=== PATIENT | male | born 1985 | race Caucasian/White ===

== ENCOUNTER 2016-08-01 08:18 | Observation (INO) | payer BC ==
[~2016-08-01] VITALS: Ht 200.7 cm; Wt 142.7 kg
--- NOTE | 2016-08-01 13:03 | DIAGNOSTIC IMAGING REPORT ---
PROCEDURE: US ABDOMEN ULTRASOUND-LIMITED INDICATION: ABNORMAL LFT TECHNIQUE: Smith scale and color Doppler sonographic images were obtained of the right upper quadrant. COMPARISON: None. FINDINGS: The liver is mildly enlarged and slightly diffusely hyperechoic in echo texture. No mass or biliary dilatation. The gallbladder is partially decompressed and normal without stones or sludge. Normal wall thickness at 1.4 mm No pericholecystic fluid or Lord's sign. The pancreas was suboptimally visualized. The visible portion of the inferior vena cava, abdominal aorta, and portal vein appear normal with appropriate direction of flow in the portal vein. The right kidney is normal measuring 11.4 cm. No free fluid in the right upper quadrant. IMPRESSION: 1. Mild hepatomegaly and hepatic steatosis. 2. No cholelithiasis or evidence of cholecystitis. 3. Preliminary report given by the technologist to the emergency room provider.
--- NOTE | 2016-08-01 14:54 | ED NURSING NOTES ---
Clinical Report - Nurses [facility] [address] [place] [address] 08/01/2016 8:19 Patient: CARI CARY TRIAGE Triage time 08:29. Acuity: LEVEL 4. Chief Complaint: PAIN WITH URINATION and URINARY RETENTION. Alert. No acute distress. SEPSIS SCREEN: Sepsis Screen. Negative (no infection suspected/documented). SOUTH COMA SCORE: Webster Coma Scale: 15- eyes open spontaneously (4); best verbal response- oriented x 4 (5); best motor response- obeys commands (6). --08:31 Nenita Cooper R.N. 08:29 08/01/16. BP: 120/76. HR: 105. RR: 16. O2 saturation: 97%. Temp: 99 F. Pain level now 06/04. --08:31 Nenita Cooper R.N. Weight: 142.8 kg stated. Height/Length: 79 inches Per Patient. BMI: 35.5. --08:30 Nenita Cooper R.N. Medications Ibuprofen Oral, as needed. --08:31 Nenita Cooper R.N. Allergies Sulfa Antibiotics. --08:31 Nenita Cooper R.N. Suprax. --08:31 Nenita Cooper R.N. History Arrived by private vehicle. Historian: patient. Unaccompanied. Primary physician (none). Onset. (3 days ago continues to get worse). Treatment [employer] TIN CANS: Took ibuprofen. (0400). PAST MEDICAL HX: Immunizations: status is unknown. SOCIAL HX: Never smoker. Occasional alcohol use. No drug use. ABUSE ASSESSMENT: Abuse assessment: The patient was asked "Do you feel safe in your home?" and "Has anyone hurt you or threatened to hurt you?". No report of abuse. NUTRITIONAL RISK ASSESSMENT: The nutritional risk assessment revealed no deficiencies. FUNCTIONAL ASSESSMENT: Functional assessment: no impairments noted. LEARNING NEEDS ASSESSMENT: The learning needs assessment revealed no barriers. --08:31 Nenita Cooper R.N. PROBLEMS: Corneal Abrasion. Nasal Fracture. Abrasion(s). Contusion. Abnormal Liver Function Test. Chest Wall Pain. Sprain. --08: Nenita Cooper R.N. ADDITIONAL SURGERIES: Sinus Surgery. --08: Nenita Cooper R.N. Interventions ID band on patient. Ambulatory. --08:31 Nenita Cooper R.N. PHYSICAL ASSESSMENT Ambulatory to room. GENERAL / NEURO / PSYCH: Alert. Appears in no acute distress. HEENT: Mucous membranes are pink. RESPIRATORY: Respirations not labored. CVS: Capillary refill less than 2 seconds. GI / : Abdomen soft and nontender. SKIN: Skin is warm and dry. --08:31 Nenita Cooper R.N. SKIN: Skin appears jaundiced. --10:23 Nenita Cooper R.N. NURSING PROGRESS NOTES Patient gowned. Head of bed elevated. Two patient identifiers checked. Call light placed in reach. Side rails up x 2. Bed placed in lowest position. Brakes of bed on. Patient ready for evaluation- chart flagged. --08:31 Nenita Cooper R.N. 09:00 08/01/2016 Site #1 started via IV in the left antecubital space with an 20g angiocath, with aseptic technique and good blood return; one attempt. Blood drawn: rainbow set. Labeled in the presence of the patient and sent to the lab. Saline lock flushed with 10 mL saline (accessed by Armand Salomon RN). --09:23 Nenita Cooper R.N. 09:07 08/01/2016 Started bag #1 1000 mL IV Fluids IV NS (Saline); at 1000 mL/hr over 1 minute(s) via site #1 via IV pump. Allergies verified and confirmed 5 rights. IV patency established. IV site checked: no pain, redness, or swelling. IV flushed thoroughly pre- and post-medication administration. --09:24 Nenita Cooper R.N. 09:08 08/01/2016 Zofran (Ondansetron HCl) IVP 4 mg given over 1 minute(s) via site #1. Allergies verified and confirmed 5 rights. IV patency established. IV site checked: no pain, redness, or swelling. IV flushed thoroughly pre- and post-medication administration. --09:24 Nenita Cooper R.N. 09:15. Patient ID band checked for patient name, birthdate and medical record number: patient confirmed. Instructions provided to collect clean catch urine and patient verbalized understanding. Clean catch urine collected with return of yellow-colored clear urine; sample sent to lab for urinalysis. Specimen labeled in the presence of the patient. --09:29 Nenita Cooper R.N. 09:29 08/01/16. BP: 104/54. HR: 93. RR: 16. O2 saturation: 98%. --09:32 Nneita Cooper R.N. Patient informed about reason for wait and about plan of care. --09:32 Nenita Cooper R.N. 10:23 08/01/16. BP: 101/51. HR: 102. RR: 18. O2 saturation: 97%. --10:24 Nenita Cooper R.N. 10:08/01/16. Critical value relayed to ED by Turf And Grounds Supervisor. Critical value received by Harpreet Acuna RN. (+) [place] screen. ED physician notifed of critical value. --10:27 Armand Cline R.N. 12:24 08/01/2016 IV Fluids IV NS Discontinued: bag #1 infused. Total amount infused: 800 mL. IV patency established. IV site checked: no pain, redness, or swelling. IV flushed thoroughly. --12:24 Nenita Cooper R.N. 12:25 08/01/2016 Site #1 reassessed. (IV site infiltrated. Line removed applied manual pressure and bandaid.). --12:25 Nenita Cooper R.N. 13:12 08/01/16. BP: 128/75. HR: 100. RR: 15. O2 saturation: 97%. Pain level now 04/06. --13:13 Nenita Cooper R.N. 14:08/01/2016 Site #2 started via IV in the right antecubital space with an 20g angiocath, with aseptic technique and good blood return; one attempt. Blood drawn: rainbow set. Labeled in the presence of the patient and sent to the lab. Saline lock flushed with 10 mL saline. --14:05 Nenita Cooper R.N. 15:22 08/01/2016 Site #2 removed. Catheter intact. Manual pressure and bandage applied (site infiltrated in CT). --15:22 Jyotsna Vega R.N. 15:22 08/01/2016 Site #3 started via IV in the right antecubital space with an 20g angiocath, with aseptic technique and good blood return; one attempt. Saline lock flushed with 10 mL saline. --15:22 Jyotsna Vega R.N. 15:37 08/01/16. BP: 120/64. HR: 96. RR: 15. O2 saturation: 97%. --15:37 Nenita Cooper R.N. DISPOSITION / DISCHARGE Admitted to Acute Care. Report was given to a nurse via a phone call. Report included patient's care, treatment, medications, reviewed medication reconcilliation, and condition (including any recent changes or anticipated changes). All questions were answered. Patient's personal items; items were placed in belongings bag, given to the patient and transported with the patient. --16:32 Nenita Cooper R.N. 16:38 08/01/16. BP: 126/68. HR: 97. RR: 16. O2 saturation: 99%. Temp: 101.0 F. Pain level now 7/10. --16:39 Nenita Cooper R.N. Departure time: 16:39. --16:39 Nenita Cooper R.N. Locked/Released at 08/01/2016 16:41 by Nenita Cooper R.N.
--- NOTE | 2016-08-01 14:54 | ED ORDER SUMMARY ---
..... Patient: CARI CARY OrderSheet [facility] VisitID: [id number] [address] [place] [address] 31y, M Registration Date/Time: 08/01/2016 ORDER SHEET Weight: 142.8 kg (stated) Allergies: Sulfa Antibiotics, Suprax GENERAL ORDERS: UA-Culture if indicated Urgent (08:55 08/01/2016 PHutchinson DO) (Ack 8:56 TBergley) (9:28 SReitz R.N.) Cardiac Panel Stat (08:55 08/01/2016 PHutchinson DO) (Ack 8:56 TBergley) (9:24 SReitz R.N.) BNP Urgent (08:55 08/01/2016 PHutchinson DO) (Ack 8:56 TBergley) (9:24 SReitz R.N.) Amylase Urgent (08:55 08/01/2016 PHutchinson DO) (Ack 8:56 TBergley) (9:24 SReitz R.N.) PT with INR Urgent (08:55 08/01/2016 PHutchinson DO) (Ack 8:56 TBergley) (9:24 SReitz R.N.) Urine Drug Screen Urgent (08:55 08/01/2016 PHutchinson DO) (Ack 8:56 TBergley) (9:28 SReitz R.N.) Culture, Strep Screen Urgent (08:55 08/01/2016 PHutchinson DO) (Ack 8:56 TBergley) (9:28 SReitz R.N.) Pulse oximeter (08:55 08/01/2016 PHutchinson DO) (Ack 8:56 TBergley) (9:03 MWinterer R.N.) Vitals (08:55 08/01/2016 PHutchinson DO) (Ack 8:56 TBergley) (9:03 MWinterer R.N.) Lipase Urgent (08:58 08/01/2016 Xochilt Busby) (Ack 9:01 TBergley) (9:24 SReitz R.N.) Monoscreen Urgent (10:10 08/01/2016 MWinterer R.N. per protocol) (Ack 10:12 TBergley) (10:12 MWinterer R.N.) US Abdomen Limited (No) Urgent (11:00 08/01/2016 Xochilt Busby) (Ack 11:02 TBergley) (13:11 SRejennifer R.N.) Hepatitis Evaluation VII Urgent (11:01 08/01/2016 Xochilt Busby) (Ack 11:13 TBergley) (11:14 TBergley) - (bilirubin serum, direct and indirect) (13:32 08/01/2016 Xochilt Busby) (13:41 TBergley) CT Abd/Pel w Cont (No) (gfr > 60) Urgent (14:27 08/01/2016 Xochilt Busby) (Ack 14:33 TBergley) (15:29 TBergley) MEDICATION ORDERS: IV FLUIDS: IV NS : initial bolus 1000 mL (1000 mL/hr), then 1000 mL/hr for X1 (NOW) (08:54 08/01/2016 [facility]) (Ack 9:04 MWinterer R.N.) (9:24 SRejennifer R.N.) Zofran IV 4 mg (NOW) (08:55 08/01/2016 [facility]) (Ack 9:04 MWinterer R.N.) (9:24 SRejennifer R.N.) ORDER SHEET NOTES: [Electronically signed by Nenita Cooper R.N. (16:41 08/01/2016)] [Electronically signed by Diaz Nolan Dr. (17:18 08/02/2016)] [Electronically locked/signed by Nenita Cooper R.N. (16:41 08/01/2016)]
--- NOTE | 2016-08-01 14:54 | ED CLINICAL REPORT ---
Clinical Report - Physicians/Mid Levels [facility] [address] [place] [address] 08/01/2016 8:19 Patient: CARI CARY Time Seen: 08:44. Arrived- By private vehicle. Historian- patient. HISTORY OF PRESENT ILLNESS Chief Complaint: Pain with urination. At its maximum, severity described as mild. When seen in the E.D., severity described as mild. Modifying factors. Not worsened by anything. Not relieved by anything. This started about 3 days ago and is still present. It was gradual in onset and has been waxing/waning. It is described as "pain". No radiation. No nausea, loss of appetite or vomiting. No additional abdominal pain. (states he also has generalized fatigue). No recent travel. Similar symptoms previously: Recent medical care: Not recently seen/assessed. REVIEW OF SYSTEMS No constipation, fever, chest pain or difficulty breathing. All systems otherwise negative, except as recorded above. PAST HISTORY PROBLEMS: Corneal Abrasion. Nasal Fracture. Abrasion(s). Contusion. Abnormal Liver Function Test. Chest Wall Pain. Sprain. SURGERIES: Sinus Surgery. Medications: Ibuprofen Oral, as needed. Allergies: Sulfa Antibiotics. Suprax. SOCIAL HISTORY Never smoker. Occasional alcohol use. No drug use. 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 ADDITIONAL NOTES The nursing notes have been reviewed. PHYSICAL EXAM Vital Signs: 08/01/2016 08:29 BP: 120/76. HR: 105. RR: 16. O2 saturation: 97%. Temp: 99 F. Blood pressure normal. Oxygen saturation normal. Appearance: Alert. Oriented X3. No acute distress. Eyes: Pupils equal, round and reactive to light. Scleral icterus. Eyes normal inspection. ENT: Ears normal. Nose normal. Pharynx normal. Neck: Normal inspection. Neck supple. CVS: Normal heart rate and rhythm. Heart sounds normal. Pulses normal. Respiratory: No respiratory distress. Breath sounds normal. Chest nontender. No rales, rhonchi or wheezes. Abdomen: Soft and nontender. Bowel sounds normal. No organomegaly. No mass. Back: Normal inspection. Skin: Skin warm and dry. No rash. Normal skin turgor. (light jaundice). Extremities: Extremities exhibit normal ROM. Neuro: Oriented X 3. No motor deficit. No sensory deficit. LABS, X-RAYS, AND EKG Abdominal CT: PROCEDURE: ABDOMEN/PELVIS WITH CONTRAST CLINICAL INDICATION: JAUNDICE TECHNIQUE: 145 ml of Isovue 300 were injected intravenously and axial images were obtained of the abdomen and pelvis with sagittal and coronal reformations. During the contrast injection, there was IV failure and extravasation of the portion of contrast into the right antecubital fossa. The emergency room nurse was notified and the patient was treated. COMPARISON: None. Correlation made ultrasound performed the same day. FINDINGS: ABDOMEN: Bulky adenopathy is seen in the abelino hepatis and caval regions. Numerous nonenlarged lymph nodes are seen in the periaortic region. The spleen is diffusely enlarged measuring about 18.5 cm in length, 15 cm in AP diameter, and 8 cm transversely. The liver is mildly enlarged and demonstrates mild diffuse hypodensity. Clear lung bases. Normal sized heart. No hiatal hernia. The decompressed gallbladder, adrenal glands, kidneys, and pancreas are normal. The abdominal aorta is normal in its course and caliber. No atherosclerosis. There are no suspicious calcifications, or masses. The stomach, upper bowel loops, and mesentery are normal. Intact anterior abdominal wall. No free fluid or inflammation. PELVIS: Moderately bulky adenopathy in the external iliac chains bilaterally, left greater than right. The largest left external iliac lymph node measures 2.3 cm in short axis by 3.9 cm in length. The appendix was not convincingly identified. The pelvic small bowel loops are normal. Normal amount of stool in the colon and rectum. The uterus, ovaries, urinary bladder, and pelvic vessels are normal. No free fluid, or pelvic mass. Intact osseous structures. IMPRESSION: 1. Hepatosplenomegaly. 2. Bulky adenopathy in the abelino hepatis, portacaval, external iliac, and inguinal regions. 3. Mild hepatic hypodensity. 4. Constellation of findings consistent with infectious mononucleosis with EBV hepatitis. Differential diagnosis could also include lymphoma and leukemia. Clinical correlation recommended. Abdominal Sonogram: (PROCEDURE: US ABDOMEN ULTRASOUND-LIMITED INDICATION: ABNORMAL LFT TECHNIQUE: Smith scale and color Doppler sonographic images were obtained of the right upper quadrant. COMPARISON: None. FINDINGS: The liver is mildly enlarged and slightly diffusely hyperechoic in echo texture. No mass or biliary dilatation. The gallbladder is partially decompressed and normal without stones or sludge. Normal wall thickness at 1.4 mm No pericholecystic fluid or Lord's sign. The pancreas was suboptimally visualized. The visible portion of the inferior vena cava, abdominal aorta, and portal vein appear normal with appropriate direction of flow in the portal vein. The right kidney is normal measuring 11.4 cm. No free fluid in the right upper quadrant. IMPRESSION: 1. Mild hepatomegaly and hepatic steatosis. 2. No cholelithiasis or evidence of cholecystitis.). The study was independently viewed by me and interpreted by the radiologist. The study was discussed with the radiologist (via pacs). Laboratory Tests: UA-Culture if indicated: (RYLEE: 08/01/2016 09:00) ( [facility] [place] Final results Test Result Flag Units (Reference) URINE COLOR MELANIE URINE APPEARANCE CLEAR URINE GLUCOSE TRACE (NEGATIVE) URINE BILIRUBIN 3+ (NEGATIVE) URINE BILI CONFIRMATION= POSITIVE BY ICTOTEST URINE KETONE TRACE (NEGATIVE) URINE SPECIFIC GRAVITY 1.015 (1.010-1.030) URINE PH 8.0 (5.0-8.0) URINE PROTEIN 1+ (NEGATIVE) URINE UROBILINOGEN >=8.0 EU/dL (0.2-1.0) URINE NITRITE POSITIVE (NEGATIVE) URINE BLOOD NEGATIVE (NEGATIVE) URINE LEUK ESTERASE TRACE (NEGATIVE) URINE RBC NONE SEEN rbc/hpf (0-1) URINE WBC 1-3 wbc/hpf (0-1) URINE EPITHELIAL CELLS NONE SEEN EPI/hpf (0-5) URINE BACTERIA TRACE (<1+) (NONE SEEN) URINE COMMENT CULTURE INDICATED URINE CULTURES ARE SET-UP BASED ON THE FOLLOWING CRITERIA:POSITIVE NITRITEPOSITIVE LEUKOCYTE ESTERASEGREATER THAN 10 WHITE BLOOD CELLSMODERATE (2+) OR GREATER BACTERIA Monoscreen: (RYLEE: 08/01/2016 09:00) ( [facility] 08/01/2016 10:23) Final results Test Result Flag Units (Reference) MONOSCREEN POSITIVE (NEGATIVE) CBC w Diff: (RYLEE: 08/01/2016 09:00) ( [facility] 08/01/2016 10:19) Final results Test Result Flag Units (Reference) WHITE BLOOD COUNT 10.3 K/uL (4.5-11.5) RED BLOOD COUNT 4.61 M/uL (4.50-5.90) HEMOGLOBIN 15.3 gm/dL (13.5-17.5) HEMATOCRIT 43.4 % (41.0-53.0) MEAN CELL VOLUME 94 fL (80-100) MEAN CORPUSCULAR HGB 33 pg (26-34) MEAN CORPUSCULAR HGB CONC 35 g/dL (31-37) RED CELL DISTRIBUTION WIDTH 12.5 % (11.6-14.8) PLATELET COUNT 116 L K/uL (150-400) POLY % 25 L % (50-75) BAND % 15 H % (0-8) LYMPH 46 H % (25-40) MONO 12 % (3-14) EOSINOPHIL % 1 % (0-4) BASOPHIL % 1 % (0-2) METAMYELOCYTE % 0 % (0-1) MYELOCYTE 0 % (0-1) OTHER CELL TYPE 0 RBC MORPHOLOGY REACTIVE LYMPHS MANY~~NORMAL RBC POP PT with INR: (RYLEE: 08/01/2016 09:00) ( [facility] 08/01/2016 09:36) Final results Test Result Flag Units (Reference) INR 1.0 (0.8-1.2) Low Intensity Therapy: INR 1.5-2.0 PT range 18.5-23.1Mod.Intensity Therapy: INR 2.0-3.0 PT range 23.1-31.5High Intensity Therapy: INR 2.5-3.5 PT range 27.4-35.5High Intensity Therapy 2: INR 3.0-4.0 PT range 31.5-39.3 Urine Drug Screen: (RYLEE: 08/01/2016 09:00) ( [facility] 08/01/2016 09:58) Final results Test Result Flag Units (Reference) AMPHETAMINE/METHAMPHETAMINE NEGATIVE (NEGATIVE) BARBITURATE NEGATIVE (NEGATIVE) BENZODIAZEPINE NEGATIVE (NEGATIVE) CANNABINOID POSITIVE H (NEGATIVE) COCAINE NEGATIVE (NEGATIVE) ECSTASY NEGATIVE (NEGATIVE) METHADONE NEGATIVE (NEGATIVE) OPIATE NEGATIVE (NEGATIVE) The urine drug screen is a qualitative screening test fordrug overdose and abuse. All screen results should beconsidered as presumptive.Drugs screened for are as follows:BenzodiazepinesCocaineAmphetamines/MetamphetaminesTHC (Tetrahydrocannabinol)OpiatesBarbituratesEcstasyMethadonePositive results are unconfirmed. For confirmation, notifythe lab for the specimen to be sent to the reference lab.All confirmations must be performed by a differentmethodology.The ingestion of natural herbal and plant productscontaining Ephedra/Ephedra metabolites can produce in urineone or more substances capable of cross reacting withamphetamine/methamphetamine immunoassays. These testsprovide a preliminary result only. A more specificalternative chemical method must be used to obtain aconfirmed analytical result. BNP: (RYLEE: 08/01/2016 09:00) ( MsgRcvd 08/01/2016 10:05) Final results Test Result Flag Units (Reference) B-TYPE NATRIURETIC PEPTIDE < 5.0 L pg/ml (5-100) CHEM 13 PANEL: (RYLEE: 08/01/2016 09:00) ( MsgRcvd 08/01/2016 13:45) Final results Test Result Flag Units (Reference) GLUCOSE 100 mg/dL (70-110) BUN 12 mg/dL (7-18) CREATININE 1.0 mg/dL (0.6-1.3) Estimated GFR >60 mL/min Estimated GFR- >60 mL/min Note: Persistent reduction over 3 months in eGFR<60 mL/min/1.73 m2 defines CKD. Patients with eGFR values>=60 mL/min/1.73 m2 may also have CKD if evidence ofpersistent proteinuria. Additional information may be foundat www.kidney.org. SODIUM 138 mmol/L (136-145) POTASSIUM 4.4 mmol/L (3.5-5.1) CHLORIDE 100 mmol/L (98-107) CARBON DIOXIDE 27 mmol/L (21-32) CALCIUM 9.0 mg/dL (8.5-10.1) TOTAL PROTEIN 8.2 g/dL (6.4-8.2) ALBUMIN 3.7 g/dL (3.3-5.0) BILIRUBIN, TOTAL 10.4 H mg/dL (0.0-1.0) ALKALINE PHOSPHATASE 151 H U/L (46-116) AST (SGOT) 124 H U/L (15-37) ALT (SGPT) 174 H U/L (12-78) MAGNESIUM 2.3 mg/dL (1.8-2.4) LIPASE 178 U/L (73-393) AMYLASE 30 U/L (25-115) CPK 130 U/L (24-260) TROPONIN I <0.05 L ng/mL (0.00-1.5) TROPONIN REFERENCE RANGE:<0.1 NEGATIVE0.1-1.5 INDETERMINANT>1.5 POSITIVE BILIRUBIN, DIRECT 7.5 H mg/dL (0-0.3) BILIRUBIN, INDIRECT 2.9 H mg/dL (0.1-1.0) . PROGRESS AND PROCEDURES Course of Care: thhe patient is a pleasant 31-year-old male. Past medical history presenting for reevaluation of generalized malaise and fatigue. Patient has been evaluated by the prior physician and I have taking over care at the change of shift. Positive bowel upon the patient's laboratory studies and reevaluate the patient. I have introduced myself to the patient and performed my own independent examination. Agree with the assessment and plan. Patient's laboratory studies are notable for the findings above. Because of the abnormal liver function tests, will evaluate the patient for possible hepatobiliary obstruction with ultrasound. Patient is agreeable to the treatment and plan. Patient offered pain medication. Patient's ultrasound does not show any acute findings. Because of the patient's continued abnormal laboratory studies, would be concern for other alternative causes for the patient's increase in bilirubin. Was able to contact laboratory studies to have the bilirubin fractionated. Patient otherwise reports no recent Tylenol, alcohol, or other toxic ingestion. Patient reports no eating of raw or unprocessed seafood recently. Patient was no sick contacts. 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 was able to contact gastroenterology. No further recommendations made. Patient will be monitored for liver function evaluation. Had spoken to the hospitalist who is agreeable to the treatment plan. Would like to order patient a CT scan at this time for evaluation of potential pancreatic mass or abnormal intra-abdominal mass causing the patient's symptoms. Patient's CT scan does not show any significant abnormalities. Because of the patient's negative imaging here in the emergency department, feel the symptoms at this time are most likely because of viral hepatitis. Patient will be admitted for further monitoring because of the abnormal laboratory studies however and monitoring of his liver function. Discussed with the patient and mother that work appearing emergency department including diagnosis, and plan of care. All questions have been answered. The patient expressed understanding of these instructions and was agreeable to them. Consult obtained from gastroenterology. Disposition: Observation. (Electronically signed by Diaz Nolan Dr. 08/02/2016 17:18)
--- NOTE | 2016-08-01 14:54 | ED ORDER SUMMARY ---
..... Patient: CARI CARY OrderSheet [facility] VisitID: [id number] [address] [place] [address] 31y, M Registration Date/Time: 08/01/2016 ORDER SHEET Weight: 142.8 kg (stated) Allergies: Sulfa Antibiotics, Suprax GENERAL ORDERS: UA-Culture if indicated Urgent (08:55 08/01/2016 PHutchinson DO) (Ack 8:56 TBergley) (9:28 SReitz R.N.) Cardiac Panel Stat (08:55 08/01/2016 PHutchinson DO) (Ack 8:56 TBergley) (9:24 SReitz R.N.) BNP Urgent (08:55 08/01/2016 PHutchinson DO) (Ack 8:56 TBergley) (9:24 SReitz R.N.) Amylase Urgent (08:55 08/01/2016 PHutchinson DO) (Ack 8:56 TBergley) (9:24 SReitz R.N.) PT with INR Urgent (08:55 08/01/2016 PHutchinson DO) (Ack 8:56 TBergley) (9:24 SReitz R.N.) Urine Drug Screen Urgent (08:55 08/01/2016 PHutchinson DO) (Ack 8:56 TBergley) (9:28 SReitz R.N.) Culture, Strep Screen Urgent (08:55 08/01/2016 PHutchinson DO) (Ack 8:56 TBergley) (9:28 SReitz R.N.) Pulse oximeter (08:55 08/01/2016 PHutchinson DO) (Ack 8:56 TBergley) (9:03 MWinterer R.N.) Vitals (08:55 08/01/2016 PHutchinson DO) (Ack 8:56 TBergley) (9:03 MWinterer R.N.) Lipase Urgent (08:58 08/01/2016 Xochilt Busby) (Ack 9:01 TBergley) (9:24 SReitz R.N.) Monoscreen Urgent (10:10 08/01/2016 MWinterer R.N. per protocol) (Ack 10:12 TBergley) (10:12 MWinterer R.N.) US Abdomen Limited (No) Urgent (11:00 08/01/2016 Xochilt Busby) (Ack 11:02 TBergley) (13:11 SRejennifer R.N.) Hepatitis Evaluation VII Urgent (11:01 08/01/2016 Xochilt Busby) (Ack 11:13 TBergley) (11:14 TBergley) - (bilirubin serum, direct and indirect) (13:32 08/01/2016 Xochilt Busby) (13:41 TBergley) CT Abd/Pel w Cont (No) (gfr > 60) Urgent (14:27 08/01/2016 Xochilt Busby) (Ack 14:33 TBergley) (15:29 TBergley) MEDICATION ORDERS: IV FLUIDS: IV NS : initial bolus 1000 mL (1000 mL/hr), then 1000 mL/hr for X1 (NOW) (08:54 08/01/2016 [facility]) (Ack 9:04 MWinterer R.N.) (9:24 SRejennifer R.N.) Zofran IV 4 mg (NOW) (08:55 08/01/2016 [facility]) (Ack 9:04 MWinterer R.N.) (9:24 SRejennifer R.N.) ORDER SHEET NOTES: [Electronically signed by Nenita Cooper R.N. (16:41 08/01/2016)] [Electronically signed by Diaz Nolan Dr. (17:18 08/02/2016)] [Electronically locked/signed by Nenita Cooper R.N. (16:41 08/01/2016)]
--- NOTE | 2016-08-01 15:42 | Progress Note ---
Subjective General dmission History and Physical Examination Patient Name: Bora Enriquez Admission Date: August 01, 2016 Primary Care Provider: Winsome Attending Physician: Golden Cameron M.D. Admitting Physician: Golden Cameron M.D. Code Status: FULL CODE Room: Status: Obs. SUBJECTIVE Historian: Patient Reliability: good Chief Complaint: abdominal pain jaundice History of Present Illness: The patient is a 31-year-old, otherwise healthy white male with an insignificant past medical who presented to [facility] emergency room on the day of admission secondary to complaints of mid abdominal pain and perceived yellowing of his skin. Patient generally has felt malaise and fatigue tiredness over the past 3 or 4 days. Patient first started noticing this 4 days ago. Patient attributed the throat fatigue and illness being out in the sund and possible dehydration. Patient also reported that he has had dark urine and has had difficult time with adequate urination. Patient states that he has not had pain with urination but had not urinated as frequently as in the past. Patient is attempting to improve on hydration. Patient was worked up in the emergency department. There was noted that he had labs consistent with hepatitis. Liver enzymes, elevated T bili, ultrasound of the abdomen was done and revealed fatty infiltrate into the liver. Also CT scan was done which showed showed intra-abdominal lymphadenopathy along with changes in the contour of the liver. Monistat was positive. Secondary to the above, the patient was admitted by Golden Cameron M.D. for further evaluation and treatment. Patient denies sexual activity in the past year. No high risk exposure. Patient has not been exposed to anyone that he knows with mononucleosis. Patient has not traveled. Patient has been in close contact with dosage of traveled from a foreign country. Patient reports of no nausea vomiting diarrhea. Patient has not had fever. Patient does feel clammy at times sweaty. 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 He is not sure if he's been exposed from that standpoint. PAST MEDICAL HISTORY Illnesses: No significant medical history Allergies: None Medications: None Surgery: Nasal sinus surgery Injuries: 1. Injury to the knee Hospitalizations: 1. None FAMILY HISTORY Parents: 1. Father, good health 2. Mother, good health Siblings: 1. The patient has an older sister Children: 1. None Other significant family history: None none SOCIAL HISTORY 1. Marital Status: Single 2. Uatsdin: Unknown 3. Education: High school; several years of years of college 4. Employment History: Construction work, 19pay 5. Occupational health exposures: Patient denies any significant occupational exposures HABITS 1. Tobacco: Weekly tobacco use 2. Drugs: None 3. Alcohol: 3-4 beers per week 4. Caffeine: None HEALTH SUPERVISION Item/Test: unknown Unknown IMMUNIZATIONS: Unknown ADVANCED DIRECTIVES: 1. Living well: No 2. POLST: No 3. Code Status: Full code 4. Durable Power Collections [employer] Director Health care: No 5. Donor card: No REVIEW OF SYSTEMS Remarkable for those things stated in the history of present illness and past medical history. Seventeen point review of system completed with the following notable findings: Constitutional Malaise. Denies: Chills, Sweats, Weakness. Eyes Other (yellowing of the eyes and skin). Denies: Vision Change. ENT Denies: Nasal Discharge, Nasal Congestion. Respiratory Denies: SOB w/exertion. Cardiovascular Denies: Palpitations. Gastrointestinal Denies: Abdominal Pain. Skin Other (yellowing of the skin). Physical Exam Vital Signs / I&Os Vital Signs Date Time Temp Pulse Resp B/P Pulse O2 O2 Flow FiO2 Ox Delivery Rate 08/01 1704 101.5 63 18 130/61 100 Room Air General Appearance Oriented X3, Cooperative, No acute distress HEENT EOMI, erythematous changes posterior pharynx, icteric sclera Lungs Clear to auscultation Neck Supple Cardiovascular Regular rate and rhythm, Normal S1 and S2 Abdomen Soft, No tenderness, No guarding, No rebound, No hepatosplenomegaly (no tenderness to palpation) Extremities No edema, Normal pulses Skin jaundice Psych/Mental Status Mood normal LAB Results Laboratory Tests 08/01 08/01 0855 0858 Chemistry Amylase Cancelled Lipase Cancelled 08/01 08/01 08/01 0900 0900 1109 Chemistry Plasma Sodium (136 - 145 mmol/L) 138 Plasma Potassium (3.5 - 5.1 mmol/L) 4.4 Plasma Chloride (98 - 107 mmol/L) 100 CO2 (Enzymatic) (21 - 32 mmol/L) 27 BUN (7 - 18 mg/dL) 12 Creatinine (0.6 - 1.3 mg/dL) 1.0 Est GFR ( Amer) (mL/min) >60 Est GFR (Non-Af Amer) (mL/min) >60 Glucose (70 - 110 mg/dL) 100 Plasma Calcium (8.5 - 10.1 mg/dL) 9.0 Plasma Magnesium (1.8 - 2.4 mg/dL) 2.3 Total Bilirubin (0.0 - 1.0 mg/dL) 10.4 Direct Bilirubin (0 - 0.3 mg/dL) 7.5 Indirect Bilirubin (0.1 - 1.0 mg/dL) 2.9 AST (15 - 37 U/L) 124 ALT (12 - 78 U/L) 174 Alkaline Phosphatase (46 - 116 U/L) 151 Creatine Kinase (24 - 260 U/L) 130 Troponin (0.00 - 1.5 ng/mL) <0.05 B-Natriuretic Peptide (5 - 100 pg/ml) < 5.0 Total Protein (6.4 - 8.2 g/dL) 8.2 Albumin (3.3 - 5.0 g/dL) 3.7 Amylase (25 - 115 U/L) 30 Lipase (73 - 393 U/L) 178 Coagulation INR (0.8 - 1.2) 1.0 Hematology WBC (4.5 - 11.5 K/uL) 10.3 RBC (4.50 - 5.90 M/uL) 4.61 Hgb (13.5 - 17.5 gm/dL) 15.3 Hct (41.0 - 53.0 %) 43.4 MCV (80 - 100 fL) 94 MCH (26 - 34 pg) 33 RDW (11.6 - 14.8 %) 12.5 Neut % (Auto) (50 - 75 %) 25 Lymph % (Auto) (25 - 40 %) 46 Dukes % (Auto) (3 - 14 %) 12 Eos % (Auto) (0 - 4 %) 1 Baso % (Auto) (0 - 2 %) 1 Band Neutrophils % (0 - 8 %) 15 Metamyelocytes % (0 - 1 %) 0 Myelocytes (0 - 1 %) 0 Other Cell Type 0 Plt Count, EDTA (150 - 400 K/uL) 116 RBC Morphology (4931 A) NORMAL RBC POP PUBS MCHC (31 - 37 g/dL) 35 Serology Hepatitis A Ab Total Pending Hep Bs Antigen Pending Hep Bs Antibody Pending Hep B Core Total Ab Pending Hepatitis C Antibody Pending Monoscreen (NEGATIVE) POSITIVE Toxicology Urine Opiates Screen (NEGATIVE) NEGATIVE Urine Methadone Screen (NEGATIVE) NEGATIVE Ur Barbiturates Screen (NEGATIVE) NEGATIVE U Amphetamin/Meth Scrn (NEGATIVE) NEGATIVE MDMA (Ecstasy) Screen (NEGATIVE) NEGATIVE U Benzodiazepines Scrn (NEGATIVE) NEGATIVE Urine Cocaine Screen (NEGATIVE) NEGATIVE U Cannabinoids Screen (NEGATIVE) POSITIVE Urines Urine Color MELANIE Urine Appearance CLEAR Urine pH (5.0 - 8.0) 8.0 Ur Specific [place] (1.010 - 1.030) 1.015 Urine Protein (NEGATIVE) 1+ Urine Ketones (NEGATIVE) TRACE Urine Blood (NEGATIVE) NEGATIVE Urine Nitrite (NEGATIVE) POSITIVE Urine Bilirubin (NEGATIVE) 3+ Urine Urobilinogen (0.2 - 1.0 EU/dL) >=8.0 Ur Leukocyte Esterase (NEGATIVE) TRACE Urine RBC (0 - 1 rbc/hpf) NONE SEEN Urine WBC (0 - 1 wbc/hpf) 1-3 Ur Epithelial Cells (0 - 5 EPI/hpf) NONE SEEN Urine Bacteria (NONE SEEN) TRACE (<1+) Urine Glucose (NEGATIVE) TRACE Urine Comment CULTURE INDICATED Microbiology Date/Time Procedure - Status Source Growth 08/01 0900 Urine Culture - RECD URINE CC 08/01 0850 Group A Streptococcus Rapid Screen - RECD THROAT Imaging CT of the abdomen 1. Hepatosplenomegaly. 2. Bulky adenopathy in the abelino hepatis, portacaval, external iliac, and inguinal regions. 3. Mild hepatic hypodensity. 4. Constellation of findings consistent with infectious mononucleosis with EBV hepatitis. Differential diagnosis could also include lymphoma and leukemia. Clinical correlation recommended. Assessment and Plan Problem List 1. Transaminitis Plan Patient is admitted for observation. Hepatitis panel is pending. GI has been called and reviewed the findings. They asked the patient be admitted overnight for observation. Follow enzymes in the a.m. Follow-up with GI to review. Monitor hydration. 2. Hyperbilirubinemia Plan Hyperbilirubinemia secondary to potential's obstructive changes in the liver. Seen with a positive Monospot. Lymphadenopathy seen adjacent to the liver. This may be consistent with mono. There have really may be a differential for lymphoma leukemia. May need to follow up as an outpatient to sort out the adenopathy 3. Bandemia Plan Repeat labs in the morning 4. Abdominal pain Plan Diffuse abdominal pain on and off. Monitor. 5. UTI (urinary tract infection) Plan Starting Levaquin 500 mg daily. Current status: Moderately stable Anticipated discharge date: Anticipated discharge in 1 days Anticipated discharge placement: Home Patient care time: Time spent in chart review, patient interview, physical exam, CPOE, and care documentation: 70 minutes Visit to patient today: 1 Complexity of care: Mild/moderate DVT prophylaxis: SCDs GI prophylaxis: Pepcid 2020 mg IV Initial patient evaluation: Emergency department Advance care plan: Full code
--- NOTE | 2016-08-01 16:21 | DIAGNOSTIC IMAGING REPORT ---
PROCEDURE: ABDOMEN/PELVIS WITH CONTRAST CLINICAL INDICATION: JAUNDICE TECHNIQUE: 145 ml of Isovue 300 were injected intravenously and axial images were obtained of the abdomen and pelvis with sagittal and coronal reformations. During the contrast injection, there was IV failure and extravasation of the portion of contrast into the right antecubital fossa. The emergency room nurse was notified and the patient was treated. COMPARISON: None. Correlation made ultrasound performed the same day. FINDINGS: ABDOMEN: Bulky adenopathy is seen in the abelino hepatis and caval regions. Numerous nonenlarged lymph nodes are seen in the periaortic region. The spleen is diffusely enlarged measuring about 18.5 cm in length, 15 cm in AP diameter, and 8 cm transversely. The liver is mildly enlarged and demonstrates mild diffuse hypodensity. Clear lung bases. Normal sized heart. No hiatal hernia. The decompressed gallbladder, adrenal glands, kidneys, and pancreas are normal. The abdominal aorta is normal in its course and caliber. No atherosclerosis. There are no suspicious calcifications, or masses. The stomach, upper bowel loops, and mesentery are normal. Intact anterior abdominal wall. No free fluid or inflammation. PELVIS: Moderately bulky adenopathy in the external iliac chains bilaterally, left greater than right. The largest left external iliac lymph node measures 2.3 cm in short axis by 3.9 cm in length. The appendix was not convincingly identified. The pelvic small bowel loops are normal. Normal amount of stool in the colon and rectum. The uterus, ovaries, urinary bladder, and pelvic vessels are normal. No free fluid, or pelvic mass. Intact osseous structures. IMPRESSION: 1. Hepatosplenomegaly. 2. Bulky adenopathy in the abelino hepatis, portacaval, external iliac, and inguinal regions. 3. Mild hepatic hypodensity. 4. Constellation of findings consistent with infectious mononucleosis with EBV hepatitis. Differential diagnosis could also include lymphoma and leukemia. Clinical correlation recommended. 5. Discussed with Dr. Nolan in the emergency room. All CT scans at this facility use dose modulation, iterative reconstruction, and/or weight-based dosing when appropriate to reduce radiation dose to as low as reasonably achievable.
[2016-08-01 17:04] VITALS: BP 130/61
[2016-08-01] MEDS ORDERED: IBUPROFEN200 M1 PO (17:39)
[2016-08-01 18:01] VITALS: BP 127/67
[2016-08-01 22:25] VITALS: BP 105/53
[2016-08-02 02:47] VITALS: BP 119/59
[2016-08-02 07:14] VITALS: BP 116/50
--- NOTE | 2016-08-02 07:21 | Progress Note ---
Subjective General Note Date: Admission Date: 11/01/2016 Hospital Day: 2 PCP: none Status: Observation AC Advanced Directive: Full code Room: 302 Brief history The patient is a 31-year-old, otherwise healthy white male with an insignificant past medical who presented to [facility] emergency room on the day of admission secondary to complaints of mid abdominal pain and perceived yellowing of his skin. Patient generally has felt malaise and fatigue tiredness over the past 3 or 4 days. Patient was worked up in the emergency department. There was noted that he had labs consistent with hepatitis. Liver enzymes, elevated T bili, ultrasound of the abdomen was done and revealed fatty infiltrate into the liver. Also CT scan was done which showed showed intra-abdominal lymphadenopathy along with changes in the contour of the liver. Monistat was positive. Secondary to the above, the patient was admitted by Golden Cameron M.D. for further evaluation and treatment. Subjective Patient reports that he is generally feeling better. Patient reports of the patient has improved. Patient is feels like he is getting back to normal. Patient still complains of the dark urine. She slept fairly well overnight. Patient having good appetite. Discussed the adenopathy in the abdominal region around the liver. With Dr. Posey oncology with [facility]. Recommendation was that further imaging should return in the next 6 weeks. Nothing to do at this point time but if there is progression then this should be further reviewed and evaluated. This was discussed with patient and he agrees with the plan. Other than that the patient's labs have been about the same as they were yesterday. Patient having general weakness general illness. This is consistent with mononucleosis. Patient requests Stay additional night for follow-up Constitutional Denies: Fever. Eyes Denies: Vision Change. Physical Exam Vital Signs / I&Os Vital Signs Date Time Temp Pulse Resp B/P Pulse O2 O2 Flow FiO2 Ox Delivery Rate 08/02 713 98.2 72 18 116/50 98 Room Air 0.0 08/02 0247 99.0 79 19 119/59 98 Room Air 0.0 08/01 2225 98.4 69 16 105/53 97 Room Air 0.0 08/01 2100 Room Air 08/01 1801 100.2 95 18 127/67 98 Room Air 08/01 1704 101.5 63 18 130/61 100 Room Air I&O 08/01 0800 08/01 1600 08/02 0000 Intake Total 1140 Output Total 1250 Balance -110 General Appearance Oriented X3, Cooperative HEENT PERRLA, icteric sclera Lungs Clear to auscultation Cardiovascular Regular rate and rhythm, Normal S1 and S2 Skin yellowing tint jaundice Neurological Normal speech, Normal tone Psych/Mental Status Mood normal LAB Results Laboratory Tests 08/01 08/01 0855 0858 Chemistry Amylase Cancelled Lipase Cancelled 08/01 08/01 08/01 0900 0900 1109 Chemistry Plasma Sodium (136 - 145 mmol/L) 138 Plasma Potassium (3.5 - 5.1 mmol/L) 4.4 Plasma Chloride (98 - 107 mmol/L) 100 CO2 (Enzymatic) (21 - 32 mmol/L) 27 BUN (7 - 18 mg/dL) 12 Creatinine (0.6 - 1.3 mg/dL) 1.0 Est GFR ( Amer) (mL/min) >60 Est GFR (Non-Af Amer) (mL/min) >60 Glucose (70 - 110 mg/dL) 100 Plasma Calcium (8.5 - 10.1 mg/dL) 9.0 Plasma Magnesium (1.8 - 2.4 mg/dL) 2.3 Total Bilirubin (0.0 - 1.0 mg/dL) 10.4 Direct Bilirubin (0 - 0.3 mg/dL) 7.5 Indirect Bilirubin (0.1 - 1.0 mg/dL) 2.9 AST (15 - 37 U/L) 124 ALT (12 - 78 U/L) 174 Alkaline Phosphatase (46 - 116 U/L) 151 Creatine Kinase (24 - 260 U/L) 130 Troponin (0.00 - 1.5 ng/mL) <0.05 B-Natriuretic Peptide (5 - 100 pg/ml) < 5.0 Total Protein (6.4 - 8.2 g/dL) 8.2 Albumin (3.3 - 5.0 g/dL) 3.7 Amylase (25 - 115 U/L) 30 Lipase (73 - 393 U/L) 178 Coagulation INR (0.8 - 1.2) 1.0 Hematology WBC (4.5 - 11.5 K/uL) 10.3 RBC (4.50 - 5.90 M/uL) 4.61 Hgb (13.5 - 17.5 gm/dL) 15.3 Hct (41.0 - 53.0 %) 43.4 MCV (80 - 100 fL) 94 MCH (26 - 34 pg) 33 RDW (11.6 - 14.8 %) 12.5 Neut % (Auto) (50 - 75 %) 25 Lymph % (Auto) (25 - 40 %) 46 Esmeralda % (Auto) (3 - 14 %) 12 Eos % (Auto) (0 - 4 %) 1 Baso % (Auto) (0 - 2 %) 1 Band Neutrophils % (0 - 8 %) 15 Metamyelocytes % (0 - 1 %) 0 Myelocytes (0 - 1 %) 0 Other Cell Type 0 Plt Count, EDTA (150 - 400 K/uL) 116 RBC Morphology (4931 A) NORMAL RBC POP PUBS MCHC (31 - 37 g/dL) 35 Serology Hepatitis A Ab Total Pending Hep Bs Antigen Pending Hep Bs Antibody Pending Hep B Core Total Ab Pending Hepatitis C Antibody Pending Monoscreen (NEGATIVE) POSITIVE Toxicology Urine Opiates Screen (NEGATIVE) NEGATIVE Urine Methadone Screen (NEGATIVE) NEGATIVE Ur Barbiturates Screen (NEGATIVE) NEGATIVE U Amphetamin/Meth Scrn (NEGATIVE) NEGATIVE MDMA (Ecstasy) Screen (NEGATIVE) NEGATIVE U Benzodiazepines Scrn (NEGATIVE) NEGATIVE Urine Cocaine Screen (NEGATIVE) NEGATIVE U Cannabinoids Screen (NEGATIVE) POSITIVE Urines Urine Color MELANIE Urine Appearance CLEAR Urine pH (5.0 - 8.0) 8.0 Ur Specific [place] (1.010 - 1.030) 1.015 Urine Protein (NEGATIVE) 1+ Urine Ketones (NEGATIVE) TRACE Urine Blood (NEGATIVE) NEGATIVE Urine Nitrite (NEGATIVE) POSITIVE Urine Bilirubin (NEGATIVE) 3+ Urine Urobilinogen (0.2 - 1.0 EU/dL) >=8.0 Ur Leukocyte Esterase (NEGATIVE) TRACE Urine RBC (0 - 1 rbc/hpf) NONE SEEN Urine WBC (0 - 1 wbc/hpf) 1-3 Ur Epithelial Cells (0 - 5 EPI/hpf) NONE SEEN Urine Bacteria (NONE SEEN) TRACE (<1+) Urine Glucose (NEGATIVE) TRACE Urine Comment CULTURE INDICATED 08/02 08/02 0501 0501 Chemistry Plasma Sodium (136 - 145 mmol/L) 141 Plasma Potassium (3.5 - 5.1 mmol/L) 4.4 Plasma Chloride (98 - 107 mmol/L) 105 CO2 (Enzymatic) (21 - 32 mmol/L) 29 BUN (7 - 18 mg/dL) 15 Creatinine (0.6 - 1.3 mg/dL) 1.0 Est GFR ( Amer) (mL/min) >60 Est GFR (Non-Af Amer) (mL/min) >60 Glucose (70 - 110 mg/dL) 92 Hemoglobin A1c % (4.5 - 6.2 %) 5.0 Plasma Calcium (8.5 - 10.1 mg/dL) 8.6 Plasma Magnesium (1.8 - 2.4 mg/dL) 2.2 Total Bilirubin (0.0 - 1.0 mg/dL) 10.3 AST (15 - 37 U/L) 111 ALT (12 - 78 U/L) 144 Alkaline Phosphatase (46 - 116 U/L) 133 Total Protein (6.4 - 8.2 g/dL) 7.1 Albumin (3.3 - 5.0 g/dL) 3.2 Coagulation INR (0.8 - 1.2) 1.1 Hematology WBC (4.5 - 11.5 K/uL) 10.5 RBC (4.50 - 5.90 M/uL) 3.58 Hgb (13.5 - 17.5 gm/dL) 13.3 Hct (41.0 - 53.0 %) 36.8 MCV (80 - 100 fL) 103 MCH (26 - 34 pg) 37 RDW (11.6 - 14.8 %) 13.0 Neut % (Auto) (50 - 75 %) 28 Lymph % (Auto) (25 - 40 %) 67 Esmeralda % (Auto) (3 - 14 %) 4 Eos % (Auto) (0 - 4 %) 0 Baso % (Auto) (0 - 2 %) 1 Band Neutrophils % (0 - 8 %) 0 Metamyelocytes % (0 - 1 %) 0 Myelocytes (0 - 1 %) 0 Other Cell Type MANY VARIANT LYMPHS Plt Count, EDTA (150 - 400 K/uL) 102 PUBS MCHC (31 - 37 g/dL) 36 Microbiology Date/Time Procedure - Status Source Growth 08/01 1700 MRSA Screen - RECD NOSE 08/01 0900 Urine Culture - RECD URINE CC 08/01 0850 Group A Streptococcus Rapid Screen - RECD THROAT Assessment and Plan Problem List 1. Transaminitis Plan Elevated liver enzymes as seen on admission. No Significant change. Follow-up on liver enzymes in the a.m. 2. Hyperbilirubinemia Plan Seen with the hyperbilirubin. The levels out of 10. follow up LABS in the a.m. Discussed the adenopathy with the solid state tester as scheduled [facility] Dr. Posey. He recommended waiting on pursuing the lymph node. Should repeat imaging in 6 weeks. 3. Bandemia Plan Edema in the setting of viral infection. 4. Abdominal pain Plan Resolving abdominal complaints. 5. UTI (urinary tract infection) Plan UTI. Currently under appropriate antibiotic coverage. Cultures of the negative Current status: Anticipated discharge date: Anticipated discharge in 1-2 days Anticipated discharge placement: Home Patient care time: Time spent in chart review, patient interview, physical exam, CPOE, and care documentation: 25 minutes Visit to patient today: Complexity of care: Mild/moderate DVT prophylaxis: Mechanical GI prophylaxis: Protonix 40 mg by mouth daily Initial patient evaluation: Emergency department CODE STATUS full
[2016-08-02 10:49] VITALS: BP 122/60
[2016-08-02 14:16] VITALS: BP 113/48
--- NOTE | 2016-08-02 17:18 | ED MED RECONCILIATION SUMMARY ---
Patient: CARI CARY Medication Reconciliation Report [facility] VisitID: [id number] [address] [place] [address] 31y, M Registration Date/Time: 08/01/2016 Weight: 142.8 kg Height/Length: 79 in. BMI: 35.5 ALLERGIES: Sulfa Antibiotics, Suprax The patient's Home Medications are listed below: THE FOLLOWING MEDICATIONS NEED TO BE RECONCILED: Ibuprofen Oral The source(s) of the original Home Medication information: Not obtained. The following Medications were given to the patient in the Emergency Department: IV NS IV Fluids bolus 0, then 1000 mL/hr, administered: 08/01/2016 9:07:00 AM Zofran [IVP] IVP 4 mg, administered: 08/01/2016 9:08:00 AM The following Medications were prescribed to the patient: None.
--- NOTE | 2016-08-02 17:18 | ED MED RECONCILIATION SUMMARY ---
Patient: CARI CARY Medication Reconciliation Report VisitID: [id number] [address] [place] [address] 31y, M Registration Date/Time: 08/01/2016 Weight: 142.8 kg Height/Length: 79 in. BMI: 35.5 ALLERGIES: Sulfa Antibiotics, Suprax The patient's Home Medications are listed below: THE FOLLOWING MEDICATIONS NEED TO BE RECONCILED: Ibuprofen Oral The source(s) of the original Home Medication information: Not obtained. The following Medications were given to the patient in the Emergency Department: IV NS IV Fluids bolus 0, then 1000 mL/hr, administered: 08/01/2016 9:07:00 AM Zofran [IVP] IVP 4 mg, administered: 08/01/2016 9:08:00 AM The following Medications were prescribed to the patient: None.
--- NOTE | 2016-08-02 17:18 | ED MAR SUMMARY ---
..... Medication Administration Record [facility] [address] [place] [address] Patient: CARI CARY Visit ID: [id number] 31y, M Weight: 142.8 kg Height/Length: 79 in BMI: 35.5 ALLERGIES: Suprax, Sulfa Antibiotics Start 09:07 08/01/2016 Nenita Cooper R.N., Stop 12:24 08/01/2016 Nenita Cooper R.N. Medication Administered: IV NS (SALINE), Dose: IV Fluids over 1 minute(s), Rate: 1000 mL/hr, Dispensed: 1000 mL bag, Site: #1 left AC. Medication Ordered: IV NS : initial bolus 1000 mL (1000 mL/hr), then 1000 mL/hr for X1 (NOW). Given 09:08 08/01/2016 Nenita Cooper R.N. Medication Administered: ZOFRAN [IVP] (ONDANSETRON HCL), Dose: 4 mg IVP over 1 minute(s), Site: #1 left AC. Medication Ordered: Zofran IV 4 mg (NOW).
--- NOTE | 2016-08-02 17:18 | ED MAR SUMMARY ---
..... Medication Administration Record [facility] [address] [place] [address] Patient: CARI CARY Visit ID: [id number] 31y, M Weight: 142.8 kg Height/Length: 79 in BMI: 35.5 ALLERGIES: Suprax, Sulfa Antibiotics Start 09:07 08/01/2016 Nenita Cooper R.N., Stop 12:24 08/01/2016 Nenita Cooper R.N. Medication Administered: IV NS (SALINE), Dose: IV Fluids over 1 minute(s), Rate: 1000 mL/hr, Dispensed: 1000 mL bag, Site: #1 left AC. Medication Ordered: IV NS : initial bolus 1000 mL (1000 mL/hr), then 1000 mL/hr for X1 (NOW). Given 09:08 08/01/2016 Nenita Cooper R.N. Medication Administered: ZOFRAN [IVP] (ONDANSETRON HCL), Dose: 4 mg IVP over 1 minute(s), Site: #1 left AC. Medication Ordered: Zofran IV 4 mg (NOW).
[2016-08-02 18:02] VITALS: BP 123/60
[2016-08-02 22:34] VITALS: BP 102/53
[2016-08-03 02:21] VITALS: BP 112/55
--- NOTE | 2016-08-03 06:51 | Progress Note ---
Subjective General Note Date: Admission Date: 08/01/2016 Hospital Day: 2 PCP: none Status: Observation AC Advanced Directive: Full code Room: 302 Brief history The patient is a 31-year-old, otherwise healthy white male with an insignificant past medical who presented to [facility] emergency room on the day of admission secondary to complaints of mid abdominal pain and perceived yellowing of his skin. Patient generally has felt malaise and fatigue tiredness over the past 3 or 4 days. Patient was worked up in the emergency department. There was noted that he had labs consistent with hepatitis. Liver enzymes, elevated T bili, ultrasound of the abdomen was done and revealed fatty infiltrate into the liver. Also CT scan was done which showed showed intra-abdominal lymphadenopathy along with changes in the contour of the liver. Monistat was positive. Secondary to the above, the patient was admitted by Golden Cameron M.D. for further evaluation and treatment. Subjective Patient generally feeling better. Patient has no more complaint of abdominal pain. Patient has good urinary flow. Patient requests Patient ready for discharge Physical Exam Vital Signs / I&Os Vital Signs Date Time Temp Pulse Resp B/P Pulse O2 O2 Flow FiO2 Ox Delivery Rate 08/03 0221 98.4 72 16 112/55 96 Room Air 0.0 08/02 2234 99.0 73 16 102/53 98 Room Air 0.0 08/02 2100 Room Air 08/02 1802 99.1 85 16 123/60 97 08/02 1416 100.0 88 18 113/48 100 Room Air 0.0 08/02 1049 98.6 85 18 122/60 100 Room Air 0.0 08/02 0714 98.2 72 18 116/50 98 Room Air 0.0 I&O 08/02 0800 08/02 1600 08/03 0000 Intake Total 2297 740 1100 Output Total 975 1700 2200 Balance 1322 -960 -1100 General Appearance Oriented X3 HEENT EOMI, icteric sclerae Lungs Clear to auscultation Cardiovascular Regular rate and rhythm, Normal S1 and S2 Extremities No cyanosis Neurological Normal gait, Normal speech Psych/Mental Status Mental status normal LAB Results Laboratory Tests 08/03 0505 Chemistry Plasma Sodium (136 - 145 mmol/L) 141 Plasma Potassium (3.5 - 5.1 mmol/L) 4.5 Plasma Chloride (98 - 107 mmol/L) 106 CO2 (Enzymatic) (21 - 32 mmol/L) 27 BUN (7 - 18 mg/dL) 11 Creatinine (0.6 - 1.3 mg/dL) 0.9 Est GFR ( Amer) (mL/min) >60 Est GFR (Non-Af Amer) (mL/min) >60 Glucose (70 - 110 mg/dL) 93 Plasma Calcium (8.5 - 10.1 mg/dL) 8.3 Total Bilirubin (0.0 - 1.0 mg/dL) 6.9 AST (15 - 37 U/L) 105 ALT (12 - 78 U/L) 141 Alkaline Phosphatase (46 - 116 U/L) 142 Total Protein (6.4 - 8.2 g/dL) 6.6 Albumin (3.3 - 5.0 g/dL) 3.1 Hematology WBC (4.5 - 11.5 K/uL) 13.6 RBC (4.50 - 5.90 M/uL) 2.83 Hgb (13.5 - 17.5 gm/dL) 12.2 Hct (41.0 - 53.0 %) 30.6 MCV (80 - 100 fL) 108 MCH (26 - 34 pg) 43 RDW (11.6 - 14.8 %) 13.4 Neut % (Auto) (50 - 75 %) 26 Lymph % (Auto) (25 - 40 %) 68 [place] % (Auto) (3 - 14 %) 4 Eos % (Auto) (0 - 4 %) 1 Baso % (Auto) (0 - 2 %) 1 Band Neutrophils % (0 - 8 %) 0 Metamyelocytes % (0 - 1 %) 0 Myelocytes (0 - 1 %) 0 Other Cell Type 0 Plt Count, EDTA (150 - 400 K/uL) 98 Hypochromic-Microcytic 1+ Anisocytosis (manual) 1+ PUBS MCHC (31 - 37 g/dL) 40 Assessment and Plan Problem List 1. Abdominal pain Plan Abdominal pain, resolved Continue with the 5 days of antibiotics. Follow up with primary care. 2. Hyperbilirubinemia Plan Elevated bilirubin now trending downward. 3. Transaminitis Plan And with a transaminitis. This should be evaluated from an outpatient point of view. Patient will be scheduled for a CT scan in 6-8 weeks with palpation medicine. 4. UTI (urinary tract infection) Plan Patient having normal urinary flow at this time. Patient on Levaquin 500 mg by mouth daily for the next 5 days. Current status: stable, improving Anticipated discharge date: Anticipated discharge 08/03/16 Anticipated discharge placement: Home Patient care time: Time spent in chart review, patient interview, physical exam, CPOE, and care documentation: 70 minutes Visit to patient today: 1 Complexity of care: Mild/moderate DVT prophylaxis: SCDs GI prophylaxis: Pepcid 20 mg IV Initial patient evaluation: Emergency department Advance care plan: Full code E&M Codes Rounding: Obsv-Comp/Moderate/[id number] Discharge: Observation - All/[id number]
[2016-08-03 07:22] VITALS: BP 125/64
[2016-08-03 10:28] VITALS: BP 116/50
[2016-08-03] MEDS ORDERED: LEVAQUIN500 MG PO (10:46)
--- NOTE | 2016-08-03 10:58 | Provider's Discharge Care Plan ---
Problem, Goal, Plan Problem List 1. Abdominal pain Goals: Diagnostic testing, Therapeutic intervention Instructions: Follow up as directed, maintain good fluid balance, rest 2. Hyperbilirubinemia Goals: Diagnostic testing, Improve nutrition status, Therapeutic intervention Instructions: Follow up as directed, outpatient follow-up; future labs 3. Bandemia Goals: Improve disease control, Therapeutic intervention Instructions: Follow up as directed 4. Transaminitis Goals: Diagnostic testing, Prevent disease progress Instructions: follow-up lab and [address] imaging 6-10 weeks 5. Adenopathy Goals: Diagnostic testing, CT imaging in 6-10 weeks compare to previous imaging Instructions: Follow up as directed 6. Hepatitis Goals: Diagnostic testing Instructions: Follow up as directed 7. UTI (urinary tract infection) Goals: Prevent disease progress Instructions: continue the antibiotics for the next 5 days
== END 2016-08-03 12:10 | disposition home or self-care (01) ==
LOC: ED SRH 08:18 → CC SRH 15:23 → TRANS SRH 15:23 → CC SRH 16:55
PROVIDERS: ADMIT Student in an Organized Health Care Education/Training Program
DX: B27.09 Gammaherpesviral mononucleosis with other complications (principal); B17.8 Other specified acute viral hepatitis; N39.0 Urinary tract infection, site not specified; R33.9 Retention of urine, unspecified
CPT/HCPCS: 29244; 29250; 29253; 29264; 90004; 90073; 90074; 90075; 90077; 90078; 90100; 90137; 90154; 90159; 90469; 90616; 91286; 91320; 91643; 91672; 92132; 92235; 92530; 92610; 92720; 92760; 92761; 92762; 92763; 92764; 92765; 92766; 92767; 94060; 95059; 98370; 99777